=== PATIENT | female | born 1950 | race Two or more races ===

== ENCOUNTER 2016-10-05 08:58 | Emergency (ER) | payer OTHER, MEDICAID ==
[~2016-10-05] VITALS: Ht 149.9 cm; Wt 66.2 kg
[2016-10-05 09:08] VITALS: BP 117/73
== END 2016-10-05 10:08 | disposition home or self-care (01) ==
LOC: ER 08:58
DX: S40.271A Other superficial bite of right shoulder, initial encounter (principal); E07.9 Disorder of thyroid, unspecified; W57.XXXA Bitten or stung by nonvenomous insect and other nonvenomous arthropods, initial encounter; Y93.89 Activity, other specified; Y99.8 Other external cause status; Y92.89 Other specified places as the place of occurrence of the external cause
CPT/HCPCS: 73610; 73630

== ENCOUNTER → 2017-02-26 | Emergency (ER) | payer OTHER, MEDICAID ==
[~2017-02-26] VITALS: Ht 134.6 cm; Wt 49.9 kg
[~2017-02-26] MED LIST: ONDANSETRON HCL 4 MG/2 ML VIAL IV ONE; SODIUM CHLORIDE 0.9% 1,000 ML IV ONE
[2017-02-26 11:03] VITALS: BP 164/85
== END | disposition home or self-care (01) ==
LOC: EDUNIT# 10:42 → EDBD 10:49 → ER 10:49
DX: R56.9 Unspecified convulsions (principal); R53.1 Weakness; E07.9 Disorder of thyroid, unspecified; R11.2 Nausea with vomiting, unspecified
CPT/HCPCS: 36415; 85025

== ENCOUNTER 2018-05-22 21:28 | Emergency (ER) | payer OTHER, MEDICAID ==
[~2018-05-22] VITALS: Ht 152.4 cm; Wt 65.8 kg
[2018-05-22 22:11] LABS: Basophils # (auto) 0 uL; Eosinophils # (auto) 0.1 uL; Hemoglobin 10.8 g/dL (12.2-16.2); Monocytes # (auto) 0.9 uL
[2018-05-22 22:17] LABS: Monocytes % (auto) 9.3 % (0.0-12.0)
[2018-05-22 22:19] LABS: Basophils % (auto) 0.3 % (0.0-2.0); Eosinophils % (auto) 1.3 % (0.0-7.0); Lymphocytes # (auto) 2.2 uL; Lymphocytes % (auto) 23.8 % (10.0-50.0); Mean Corpuscular Hemoglobin 25.5 pg (28.0-32.0); Mean Corpuscular Hgb Conc. 32.7 g/dL (32.0-36.0); Mean Corpuscular Volume 77.9 fL (80.0-100.0); Neutrophils # (auto) 6.1 uL; Neutrophils % (auto) 65.3 % (37.0-80.0); Nucleated Red Blood Cells % 0.1 %; Platelet Count (auto) 284 10^3/uL (140-450); Red Blood Cells 4.24 10^6/uL (4.0-5.20); Red Cell Distribution Width 17.4 % (11.8-14.3); White Blood Cell 9.3 10^3/uL (4.4-10.8)
[2018-05-22 22:23] LABS: INR 0.99 (0.9-1.15); Prothrombin Time 10.6 sec (9.27-12.13)
[2018-05-22 22:37] LABS: Alanine Aminotransferase 19 U/L (13-56); Albumin 3.2 g/dL (3.4-5.0); Anion Gap 5 (5-15); Aspartate Aminotransferase 15 U/L (15-37); Blood Urea Nitrogen 18 mg/dL (7-18); Calcium 8.8 mg/dL (8.5-10.1); Carbon Dioxide 28 mmol/L (21-32); Chloride 107 mmol/L (98-107); GFR African American 103 mL/min; GFR Non-African American 85 mL/min; Glucose 120 mg/dL (74-106); Magnesium 2.2 mg/dL (1.6-2.6); Potassium 3.6 mmol/L (3.5-5.1); Sodium 140 mmol/L (136-145)
[2018-05-22 22:42] LABS: Alkaline Phosphatase 100 U/L (45-117); Bilirubin, Total 0.3 mg/dL (0.2-1.0); Total Protein 7.7 g/dL (6.4-8.2)
[2018-05-23] MEDS ORDERED: KETOROLAC TROMETH 60MG/2ML VIAL IM ONE (05:45)
[2018-05-23 06:45] VITALS: BP 104/67
== END 2018-05-23 07:08 | disposition home or self-care (01) ==
LOC: ER 21:33 → MERGE 21:33 → ER 05-23 07:08
DX: M25.512 Pain in left shoulder (principal); R60.9 Edema, unspecified; M19.90 Unspecified osteoarthritis, unspecified site
CPT/HCPCS: 36415; 73060; 80053; 83735; 83880; 84484; 85025; 85610; 99284; J1885

== ENCOUNTER 2018-07-30 13:11 | Emergency (ER) | payer MEDICAID, OTHER ==
[~2018-07-30] VITALS: Ht 165.1 cm; Wt 49.9 kg
[2018-07-30 13:30] VITALS: BP 155/83
[2018-07-30] MEDS ORDERED: IBUPROFEN 800 MG TAB PO ONE (14:30)
== END 2018-07-30 14:54 | disposition home or self-care (01) ==
LOC: ER 13:11
DX: S60.222A Contusion of left hand, initial encounter (principal); M75.92 Shoulder lesion, unspecified, left shoulder; E07.9 Disorder of thyroid, unspecified; W18.39XA Other fall on same level, initial encounter; Y93.89 Activity, other specified; Y99.8 Other external cause status; Y92.89 Other specified places as the place of occurrence of the external cause
CPT/HCPCS: 73030; 73110

== ENCOUNTER 2021-04-01 11:30 | Emergency (ER) | payer MEDICAID, OTHER ==
[~2021-04-01] VITALS: Ht 149.9 cm; Wt 48.6 kg
[2021-04-01] MEDS ORDERED: AZIT1POW PO (16:24)
[2021-04-01] MEDS ORDERED: METH4PAK PO (16:24)
[2021-04-01 17:36] VITALS: BP 121/65
== END 2021-04-01 17:20 | disposition home or self-care (01) ==
LOC: ER 11:30
DX: U07.1 COVID-19 (principal); J12.82 Pneumonia due to coronavirus disease 2019; E03.9 Hypothyroidism, unspecified; Z86.2 Personal history of diseases of the blood and blood-forming organs and certain disorders involving the immune mechanism
CPT/HCPCS: 36415; 71046; 87426